=== PATIENT | female | born 1990 | race Caucasian/White ===

== ENCOUNTER 2018-04-22 11:22 | Emergency (ER) | payer OTHER ==
[2018-04-22] MEDS ORDERED: DIPHENHYDRAMINE 50 MG CAP PO (11:32)
[2018-04-22] MEDS ORDERED: DEXAMETHASONE 10 MG/ML 1 ML INJ IM (12:00)
== END 2018-04-22 12:35 | disposition left against medical advice (07) ==
LOC: FTE 11:22
DX: R21 Rash and other nonspecific skin eruption (principal); Z87.891 Personal history of nicotine dependence
CPT/HCPCS: 99283; Z7502